=== PATIENT | male | born 1960 | race Caucasian/White ===

== ENCOUNTER 2016-09-29 14:51 | Emergency (ER) | payer SELFPAY ==
--- NOTE | 2016-09-29 15:59 | ER Document Report ---
ED Eye Complaint - General Chief Complaint: Eye Problem Stated Complaint: EYE PROBLEM Time Seen by Provider: 09/29/16 15:20 Mode of Arrival: Ambulatory Information source: Patient Notes: This 56-year-old male patient comes emergency room complaining of sudden onset of visual difficulty in his right eye. He [place] it felt like his eye was filling with blood. Reports it looked like he was looking through a lava lamp and has a reddish opaqueness to his visual jon on the right side. He had an episode of visual disturbance that seemed to have a ring distribution he was looking through on the right eye last month. He saw a retina specialist on September 03, 2016 and an exam was normal by history. His ringlike visual disturbance had resolved by the time he saw the retina specialist. He does have a follow-up appointment on October 15, 2016. TRAVEL OUTSIDE OF THE [place] IN LAST 30 DAYS: No Past Medical History - General Information source: Patient - Social History Smoking Status: Never Smoker Cigarette use (# per day): No Chew tobacco use (# tins/day): No Smoking Education Provided: No Frequency of alcohol use: None Drug Abuse: None Lives with: Family Family History: Reviewed & Not Pertinent Patient has suicidal ideation: No Patient has homicidal ideation: No - Medical History Medical History: Negative Renal/ Medical History: Denies: Hx Peritoneal Dialysis Surgical Hx: Negative Review of Systems - Review of Systems Constitutional: No symptoms reported EENT: See HPI - Patient reports he is very nearsighted. Cardiovascular: No symptoms reported Respiratory: No symptoms reported Gastrointestinal: No symptoms reported Genitourinary: No symptoms reported Musculoskeletal: No symptoms reported Skin: No symptoms reported Hematologic/Lymphatic: No symptoms reported Neurological/Psychological: No symptoms reported Physical Exam - Vital signs Interpretation: Normal - General General appearance: Appears well, Alert In distress: None - HEENT Head: Normocephalic, Atraumatic Eyes: Other - The pupils are reactive. Funduscopic exam on the right side does seem to show some retinal vessels, I do not appreciate any blood in the vitreous. Pupils: PERRL Mucous membranes: Normal Neck: Normal - Respiratory Respiratory status: No respiratory distress - Cardiovascular Rhythm: Regular - Abdominal Inspection: Normal - Back Back: Normal - Extremities General upper extremity: Normal inspection General lower extremity: Normal inspection - Neurological Neuro grossly intact: Yes - Psychological Associated symptoms: Normal affect, Normal mood - Skin Skin Temperature: Warm Skin Moisture: Dry Skin Color: Normal Course - Re-evaluation Re-evalutation: 09/29/16 16:[address] De Jesus who is transportation consultant for ophthalmology. He will see the patient in his office now. He requested that the patient come to the office immediately. Discharge - Discharge Clinical Impression: Blurred vision, right eye Condition: Stable Disposition: OTHER Additional Instructions: Goes to see Dr. De Jesus in the [place] office on [facility] now. Referrals: TANVIR DE JESUS DO [ACTIVE STAFF] - 09/29/16
== END 2016-09-29 15:54 | disposition home or self-care (01) ==
LOC: ER 14:51
DX: H53.8 Other visual disturbances (principal)
CPT/HCPCS: 99283